=== PATIENT | female | born 1990 ===

== ENCOUNTER → 2018-07-03 | Outpatient (CLI) | payer BC ==
--- NOTE | 2018-07-03 15:57 | US ---
EXAMINATION TYPE: US transvaginal DATE OF EXAM: 07/03/2018 COMPARISON: NONE CLINICAL HISTORY: N92.6 Irregular Mestration. TECHNIQUE: Transvaginal (TV) Date of LMP: February EXAM MEASUREMENTS: Uterus: 8.2 x 4.7 x 4.7 cm Endometrial Stripe: 1.0 cm Right Ovary: 3.0 x 2.4 x 1.9 cm Left Ovary: 2.7 x 2.1 x 2.5 cm 1. Uterus: Anteverted, heterogeneous 2. Endometrium: heterogeneous 3. Right Ovary: Multiple peripherally oriented follicles noted. There are 13 follicles noted on a sin gle image (image 16/30). 4. Left Ovary: Multiple follicles. Scant amount of left paraovarian fluid. 5. Bilateral Adnexa: wnl 6. Posterior cul-de-sac: wnl IMPRESSION: Numerous peripherally oriented right ovarian follicles and numerous left ovarian follicle s suggesting the possibility of polycystic ovarian syndrome. Correlate with serum laboratory values a nd clinical exam.
== END ==
LOC: RADUSWWP 14:04
PROVIDERS: ATTEND Family Medicine
DX: N83.8 Other noninflammatory disorders of ovary, fallopian tube and broad ligament (principal)
CPT/HCPCS: 76830